=== PATIENT | female | born 1950 | race Caucasian/White ===

== ENCOUNTER 2016-10-30 10:52 | Emergency (ER) | payer MEDICARE ==
[~2016-10-30 10:52] MED LIST: ABILIFY2 MG PO; ADVAIR 2501 DISK W/D; ADVAIR 2501 DISK W/D IH; ADVAIR 25028 BLISTER INH; ALBUTEROL0.63 MG/1 IH; ALBUTEROL17 GM; ALBUTEROL17 GM INH; ALLEGRA180 MG; AMBIEN5 MG PO; ANEXSIA 5/325 M1 TAB PO; ANTI DEPRESSANT; ANTIVERT25 M1 PO; ASPIRIN81 MG; BACTRIM DS1 TAB PO; BENADRYL25 M3 PO; BENADRYL25 MG PO; BENAZEPRIL HCL5 M2 PO; BIAXIN XL500 MG; CELEBREX200 MG PO; CELEXA20 MG; CHLORASEPTIC LO1 LOZ MM; CIPRO500 MG; CIPRO500 MG PO; CLONAZEPAM0.5 M2 PO; CLONAZEPAM1 M2 PO; CYCLOBENZAPRINE5 M1 PO; CYMBALTA30 MG; CYMBALTA60 MG; DETROL LA4 MG PO; DICLOFENAC POTA50 M1 PO; DITROPAN XL10 M3 PO; ELAVIL50 MG PO; FLEXERIL10 MG; FLEXERIL10 MG PO; FLUTICASONE PRO16 GM; GABAPENTIN PO; GLUCOPHAGE XR500 M1 PO; GLUCOPHAGE500 M3 PO; GLUCOPHAGE500 MG PO; HYDROCHLOROTH12.5 MG; HYDROCODON-ACE1 EA16 PO; KEFLEX500 MG PO; LAMICTAL100 M2 PO; LAMICTAL200 M2 PO; LASIX20 M1 PO; LEVAQUIN500 MG PO; LEXAPRO10 M2 PO; LEXAPRO20 M2 PO; LEXAPRO20 MG PO; LORTAB ELIXIR480 ML PO; LOVENOX40 MG/0.4 SQ; LYRICA50 MG PO; MECLIZINE HCL25 M3 PO; METFORMIN HCL500 M2 PO; MILK OF MA400 MG/5 M PO; MYRBETRIQ50 M1 PO; NEURONTIN300 MG PO; NORCO 5-325 TA1 EACH PO; NORCO 5/325 TAB1 TAB PO; NORCO 7.5/325 T1 TAB PO; NORVASC5 MG PO; OMEPRAZOLE20 MG PO; PEPCID20 M1 PO; POTASSIUM CHLO20 ME3 PO; PREDNISONE10 MG PO; PREDNISONE20 M1 PO; PRILOSEC20 M1 PO; PRILOSEC20 MG PO; PROMETHAZINE12.5 M2 PO; PROTONIX40 MG; REQUIP1 MG; RITALIN20 MG PO; SENOKOT-S TABLE1 TAB PO; SYMBICORT 160-1 PUFF INH; SYMBICORT 16010.2 GM IH; SYNTHROID100 MCG PO; SYNTHROID137 MC1 PO; SYNTHROID75 MCG PO; TOPAMAX25 M2 PO; TRAMADOL HCL50 M2 PO; TRAMADOL HCL50 MG; TRAMADOL HCL50 MG PO; TRICOR145 MG PO; TYLENOL W/CODEI1 TAB PO; TYLENOL WITH C1 EACH PO; TYLENOL325 MG PO; ULTRAM50 M1 PO; ULTRAM50 MG PO; VENTOLIN HFA18 G2 INH; VESICARE10 M1 PO; VICODIN 5/500 T1 TAB PO; VITAMIN C500 M3 PO; VITAMIN D1000 UNI1 PO; VITAMIN D3 IV; VITAMIN D35000 UNI1 PO; VITAMIN D35000 UNI2 PO; XANAX0.5 MG; XANAX0.5 MG PO; ZETIA10 MG; ZOCOR40 MG; ZOFRAN ODT4 MG/UDTAB PO
[2016-10-30] MEDS ORDERED: SYMBICORT 160-1 PUFF INH (11:28)
[2016-10-30] MEDS ORDERED: KLONOPIN0.5 M1 PO (11:29)
[2016-10-30] MEDS ORDERED: LAMICTAL25 M2 PO (11:29)
[2016-10-30] MEDS ORDERED: ZYRTEC10 M7 PO (11:29)
[2016-10-30] MEDS ORDERED: CYCLOBENZAPRINE10 M1 PO (11:30)
[2016-10-30] MEDS ORDERED: NORCO 5-325 TA1 EACH PO (11:30)
[2016-10-30] MEDS ORDERED: ZOFRAN4 M2 PO (11:31)
[2016-10-30] MEDS ORDERED: MECLIZINE HCL12.5 M3 PO (11:32)
[2016-10-30] MEDS ORDERED: EAR DROP (11:34)
[2016-10-30 12:08] LABS: BASO % 0.8 % (0-2); EOS % 2.6 % (0-7); EOSINOPHIL ABSOLUTE COUNT 0.1 tho/cmm (0.0-0.7); HCT-HEMATOCRIT 38.5 % (34.0-49.0); HGB-HEMOGLOBIN 12.7 gm/dl (12.0-15.5); LYMPH % 40.9 % (20-45); LYMPH ABSOLUTE COUNT 1.6 tho/cmm (0.8-4.5); MCH (MEAN CORPUSCULAR HGB) 30.2 pg (28.0-32.0); MCV (MEAN CELL VOLUME) 91.7 fl (82.0-96.0); MEAN PLATELET VOLUME 11.2 cmc (9.4-12.4); MONO % 8.4 % (0-12); MONOCYTE ABSOLUTE COUNT 0.3 tho/cmm (0.0-1.2); NEUTROPHIL ABSOLUTE COUNT 1.8 tho/cmm (1.6-8.0); NEUTROPHIL-AUTOMATED 1.8 tho/cmm (1.6-8.0); NEUTROPHILS % 47.3 % (40-80); PLATELET COUNT 186 tho/cmm (150-450); RED CELL DISTRIBUTION WIDTH 12.5 % (12.4-16.4); WHITE BLOOD COUNT 3.8 tho/cmm (4.0-10.0)
[2016-10-30 12:17] LABS: ANION GAP 10 mmol/L (0-20); BLOOD UREA NITROGEN 15 mg/dl (6-24); CALCIUM 9.2 mg/dl (8.5-10.5); CARBON DIOXIDE-VENOUS 29 mmol/L (22-32); CHLORIDE 106 mmol/l (96-110); CREATININE 0.83 mg/dl (0.50-1.10); GLUCOSE 99 mg/dL (70-110); SODIUM 141 mmol/L (135-145); eGFR VALUE FOR BLACK 84 mL/Min
[2016-10-30] MEDS ORDERED: [UNRECOGNIZED DRUG - OTHER] LEFT EAR (12:33)
[2016-10-30] MEDS ORDERED: ULTRAM50 M1 PO (12:35)
[2016-10-30] MEDS ORDERED: VALIUM5 M1 PO (13:05)
== END 2016-10-30 13:20 ==
LOC: EDMED 10:52
PROVIDERS: Emergency Medicine
DX: R42 Dizziness and giddiness (principal)
CPT/HCPCS: J2405; J3360; J7030

== ENCOUNTER 2016-11-10 17:09 | Inpatient (IN) | payer MEDICARE ==
[~2016-11-10 17:09] MED LIST changes: +CYCLOBENZAPRINE10 M1 PO; +EAR DROP; +KLONOPIN0.5 M1 PO; +LAMICTAL25 M2 PO; +MECLIZINE HCL12.5 M3 PO; +VALIUM5 M1 PO; +ZOFRAN4 M2 PO; +ZYRTEC10 M7 PO; +[UNRECOGNIZED DRUG - OTHER] LEFT EAR
[2016-11-10] MEDS ORDERED: VALIUM5 M1 PO (17:53)
[2016-11-10] MEDS ORDERED: AUGMENTIN 875-1 EAC2 PO (17:53)
[2016-11-10] MEDS ORDERED: REGLAN10 M2 PO (17:54)
[2016-11-10 18:00] LABS: BASO % 0.4 % (0-2); EOS % 1.8 % (0-7); EOSINOPHIL ABSOLUTE COUNT 0.1 tho/cmm (0.0-0.7); HCT-HEMATOCRIT 39.5 % (34.0-49.0); HGB-HEMOGLOBIN 13.2 gm/dl (12.0-15.5); LYMPH % 15.7 % (20-45); LYMPH ABSOLUTE COUNT 0.8 tho/cmm (0.8-4.5); MCH (MEAN CORPUSCULAR HGB) 30.2 pg (28.0-32.0); MCHC MEAN CORPUSCULAR HGB CONC 33.4 % (32.0-36.0); MCV (MEAN CELL VOLUME) 90.4 fl (82.0-96.0); MEAN PLATELET VOLUME 10.7 cmc (9.4-12.4); MONO % 11.8 % (0-12); MONOCYTE ABSOLUTE COUNT 0.6 tho/cmm (0.0-1.2); NEUTROPHIL ABSOLUTE COUNT 3.5 tho/cmm (1.6-8.0); NEUTROPHIL-AUTOMATED 3.5 tho/cmm (1.6-8.0); NEUTROPHILS % 70.3 % (40-80); PLATELET COUNT 176 tho/cmm (150-450); RED BLOOD COUNT 4.37 mil/cmm (4.00-5.20); RED CELL DISTRIBUTION WIDTH 11.9 % (12.4-16.4); WHITE BLOOD COUNT 4.9 tho/cmm (4.0-10.0)
[2016-11-10 18:18] LABS: ALBUMIN 3.9 g/dl (3.5-5.0); ALKALINE PHOSPHATASE 162 U/L (33-138); ALT/SGPT 19 U/L (12-78); ANION GAP 14 mmol/L (0-20); AST/SGOT 17 U/L (10-40); BILIRUBIN,TOTAL 0.8 mg/dl (0-1.5); BLOOD UREA NITROGEN 14 mg/dl (6-24); CALCIUM 9.7 mg/dl (8.5-10.5); CARBON DIOXIDE-VENOUS 27 mmol/L (22-32); CHLORIDE 102 mmol/l (96-110); CREATININE 0.76 mg/dl (0.50-1.10); GLUCOSE 119 mg/dL (70-110); SODIUM 139 mmol/L (135-145); eGFR VALUE FOR BLACK >90 mL/Min
[2016-11-10] MEDS ORDERED: ALBUTEROL2.5 MG/3 M INH (19:26)
[2016-11-11 04:41] LABS: BASO % 0.3 % (0-2); EOS % 3.5 % (0-7); EOSINOPHIL ABSOLUTE COUNT 0.1 tho/cmm (0.0-0.7); HCT-HEMATOCRIT 33.4 % (34.0-49.0); HGB-HEMOGLOBIN 11.1 gm/dl (12.0-15.5); LYMPH % 33.2 % (20-45); LYMPH ABSOLUTE COUNT 1.1 tho/cmm (0.8-4.5); MCH (MEAN CORPUSCULAR HGB) 30.1 pg (28.0-32.0); MCHC MEAN CORPUSCULAR HGB CONC 33.2 % (32.0-36.0); MCV (MEAN CELL VOLUME) 90.5 fl (82.0-96.0); MEAN PLATELET VOLUME 10.5 cmc (9.4-12.4); MONO % 13.7 % (0-12); MONOCYTE ABSOLUTE COUNT 0.5 tho/cmm (0.0-1.2); NEUTROPHIL ABSOLUTE COUNT 1.7 tho/cmm (1.6-8.0); NEUTROPHIL-AUTOMATED 1.7 tho/cmm (1.6-8.0); NEUTROPHILS % 49.3 % (40-80); PLATELET COUNT 147 tho/cmm (150-450); RED BLOOD COUNT 3.69 mil/cmm (4.00-5.20); RED CELL DISTRIBUTION WIDTH 12.3 % (12.4-16.4); WHITE BLOOD COUNT 3.4 tho/cmm (4.0-10.0)
[2016-11-11 05:00] LABS: ANION GAP 11 mmol/L (0-20); BLOOD UREA NITROGEN 12 mg/dl (6-24); CALCIUM 8.8 mg/dl (8.5-10.5); CARBON DIOXIDE-VENOUS 29 mmol/L (22-32); CHLORIDE 107 mmol/l (96-110); CREATININE 0.69 mg/dl (0.50-1.10); GLUCOSE 100 mg/dL (70-110); SODIUM 143 mmol/L (135-145); eGFR VALUE FOR BLACK >90 mL/Min
[2016-11-11 05:20] LABS: PROCALCITONIN 0.08 ng/ml (0.05-0.09)
[2016-11-12 05:43] LABS: BASO % 0.3 % (0-2); EOSINOPHIL ABSOLUTE COUNT 0.1 tho/cmm (0.0-0.7); HCT-HEMATOCRIT 32.8 % (34.0-49.0); HGB-HEMOGLOBIN 10.9 gm/dl (12.0-15.5); IMMATURE GRANULOCYTES ABSOLUTE 0.01 tho/cmm (0-0.03); IMMATURE GRANULOCYTES PERCENT 0.3 % (0-0.3); LYMPH % 29.9 % (20-45); LYMPH ABSOLUTE COUNT 1.1 tho/cmm (0.8-4.5); MCH (MEAN CORPUSCULAR HGB) 30.1 pg (28.0-32.0); MCHC MEAN CORPUSCULAR HGB CONC 33.2 % (32.0-36.0); MCV (MEAN CELL VOLUME) 90.6 fl (82.0-96.0); MEAN PLATELET VOLUME 10.4 cmc (9.4-12.4); MONO % 12.9 % (0-12); MONOCYTE ABSOLUTE COUNT 0.5 tho/cmm (0.0-1.2); NEUTROPHILS % 53.6 % (40-80); PLATELET COUNT 135 tho/cmm (150-450); RED BLOOD COUNT 3.62 mil/cmm (4.00-5.20); RED CELL DISTRIBUTION WIDTH 12.3 % (12.4-16.4); WHITE BLOOD COUNT 3.7 tho/cmm (4.0-10.0)
[2016-11-12 05:53] LABS: ALKALINE PHOSPHATASE 130 U/L (33-138); ALT/SGPT 15 U/L (12-78); ANION GAP 8 mmol/L (0-20); AST/SGOT 18 U/L (10-40); BILIRUBIN,TOTAL 0.5 mg/dl (0-1.5); BLOOD UREA NITROGEN 7 mg/dl (6-24); CALCIUM 8.7 mg/dl (8.5-10.5); CARBON DIOXIDE-VENOUS 31 mmol/L (22-32); CHLORIDE 106 mmol/l (96-110); CREATININE 0.68 mg/dl (0.50-1.10); GLUCOSE 87 mg/dL (70-110); POTASSIUM 3.6 mmol/L (3.7-5.1); SODIUM 141 mmol/L (135-145); eGFR VALUE FOR BLACK >90 mL/Min
[2016-11-12] MEDS ORDERED: OMEPRAZOLE40 M2 PO (16:51)
== END 2016-11-12 17:15 | DRG 379 ==
LOC: EDMED 17:09 → EMR2 22:09 → 5WE 22:27
PROVIDERS: Emergency Medicine; Internal Medicine; ADMIT Internal Medicine
DX: K92.0 Hematemesis (principal); J44.9 Chronic obstructive pulmonary disease, unspecified; E11.9 Type 2 diabetes mellitus without complications; I10 Essential (primary) hypertension; D64.9 Anemia, unspecified; K27.9 Peptic ulcer, site unspecified, unspecified as acute or chronic, without hemorrhage or perforation; J32.9 Chronic sinusitis, unspecified; R42 Dizziness and giddiness; K21.9 Gastro-esophageal reflux disease without esophagitis; E78.5 Hyperlipidemia, unspecified; E03.9 Hypothyroidism, unspecified; F32.9 Major depressive disorder, single episode, unspecified; E66.9 Obesity, unspecified; F41.9 Anxiety disorder, unspecified; K59.00 Constipation, unspecified; G47.33 Obstructive sleep apnea (adult) (pediatric); M79.7 Fibromyalgia; Z79.4 Long term (current) use of insulin; Z23 Encounter for immunization
CPT/HCPCS: A9577; C9113; G0009; J0295; J1650; J2060; J2405; J7030

== ENCOUNTER 2017-04-26 03:21 | Emergency (ER) | payer MEDICARE ==
[~2017-04-26 03:21] MED LIST changes: +ALBUTEROL2.5 MG/3 M INH; +AUGMENTIN 875-1 EAC2 PO; +OMEPRAZOLE40 M2 PO; +REGLAN10 M2 PO
[2017-04-26] MEDS ORDERED: DEPAKOTE500 M1 PO (04:16)
[2017-04-26] MEDS ORDERED: PREDNISONE20 M1 PO (04:35)
[2017-04-26] MEDS ORDERED: ALBUTEROL2.5 MG/3 M NEB (04:35)
== END 2017-04-26 05:16 ==
LOC: EDMED 03:21
DX: J20.9 Acute bronchitis, unspecified (principal); F31.9 Bipolar disorder, unspecified; E07.9 Disorder of thyroid, unspecified; Z87.891 Personal history of nicotine dependence; Z79.51 Long term (current) use of inhaled steroids; Z79.890 Hormone replacement therapy; Z79.899 Other long term (current) drug therapy
CPT/HCPCS: J7512